=== PATIENT | male | born 1950 | race Caucasian/White ===

== ENCOUNTER → 2018-03-29 08:32 | Outpatient (CLI) | payer MEDICARE, OTHER, SELFPAY ==
[2018-03-29 09:10] LABS: Add Manual Diff / Slide Review NO; Basophils Percent Auto 0.8 % (0-2); Eosinophils Percent Auto 2.3 % (2-4); Hematocrit 39.4 % (41-53); Hemoglobin 13.4 g/dL (13.5-17.5); Lymphocytes Percent Auto 28.5 % (25-40); Mean Corpuscular HGB Conc 33.9 % (30-36); Mean Corpuscular Hemoglobin 29.1 PG (26-34); Mean Corpuscular Volume 86.1 fL (80-100); Monocytes Percent Auto 6.9 % (3-14); Neutrophils Absolute Auto 3200 /uL (3000-5900); Neutrophils Percent Auto 61.5 % (50-75); Platelet Count 295 X10^3/uL (150-400); Red Blood Cell Count 4.58 X10^6/uL (4.5-5.9); Red Cell Distribution Width 13.9 % (11.6-14.8); White Blood Cell Count 5.2 X10^3/uL (4.5-11.0)
[2018-03-29 09:31] LABS: Erythrocyte Sedimentation Rate 3 MM/HR (0-15)
[2018-03-29 09:59] LABS: Cholesterol 191 mg/dL (140-199); HDL Cholesterol 77 mg/dL (40-60); LDL Cholesterol Calculated 91 mg/dL (<100); Triglycerides 114 mg/dL (35-150)
[2018-03-29 10:12] LABS: Free T4, Direct Thyroxine 0.96 ng/dL (0.78-2.19)
[2018-03-29 10:17] LABS: Prostate Specific Antigen Scrn 0.851 ng/mL (0.1-4.0)
[2018-03-29 10:25] LABS: Thyroid Stimulating Hormone 2.18 uIU/mL (0.47-4.68)
== END ==
PROVIDERS: Family Provider Internal Medicine; PCP Internal Medicine; Visit Provider Internal Medicine
DX: E78.5 Hyperlipidemia, unspecified (principal); E03.9 Hypothyroidism, unspecified; C85.90 Non-Hodgkin lymphoma, unspecified, unspecified site
CPT/HCPCS: 36415; 80061; 84439; 84443; 85025; 85651; G0103